=== PATIENT | female | born 1955 | race African-American/Black ===

== ENCOUNTER 2018-09-25 15:12 | Emergency (ER) | payer BC ==
[~2018-09-25] VITALS: Ht 157.5 cm; Wt 74.0 kg
[2018-09-25] MEDS ORDERED: TETRACAINE 0.5% OPHTH DROPS 4ML OP ONE (19:15)
[2018-09-25] MEDS ORDERED: FLUORESCEIN SODIUM 1MG/STRIP OP ONE (19:15)
[2018-09-25 20:27] VITALS: BP 159/83
== END 2018-09-25 20:38 | disposition home or self-care (01) ==
LOC: ER 15:45
DX: S05.02XA Injury of conjunctiva and corneal abrasion without foreign body, left eye, initial encounter (principal); H11.32 Conjunctival hemorrhage, left eye; I10 Essential (primary) hypertension; W22.8XXA Striking against or struck by other objects, initial encounter; Y93.89 Activity, other specified; Y92.89 Other specified places as the place of occurrence of the external cause; Y99.8 Other external cause status; Z88.6 Allergy status to analgesic agent; Z88.1 Allergy status to other antibiotic agents
CPT/HCPCS: 99283